=== PATIENT | male | born 1960 | race African-American/Black ===

== ENCOUNTER 2019-11-28 14:29 | Emergency (ER) | payer MEDICAID ==
[~2019-11-28] VITALS: Ht 195.6 cm; Wt 90.0 kg
[2019-11-28] MEDS ORDERED: NITROGLYCERIN 0.4MG TABLET SL SL PRN (15:30)
[2019-11-28] MEDS ORDERED: ASPIRIN 81MG TABLET PO ONE (15:30)
[2019-11-28] MEDS ORDERED: MORPHINE SULFATE 4 MG/ML CPJ (NOT FOR IM USE) IV ONE (15:30)
[2019-11-28] MEDS ORDERED: ONDANSETRON 4MG ODT PO ONE (15:30)
[2019-11-28 16:40] LABS: HEMATOCRIT. 37.3 % (42.0-52.0); HEMOGLOBIN. 13.8 g/dL (14.0-18.0); MEAN CORPUSCULAR HEMOGLOBIN 36.6 pg (28.0-32.0); MEAN CORPUSCULAR VOLUME 99.2 fL (80.0-94.0); MEAN PLATELET VOLUME 8.1 fl (7.4-10.4); PLATELET 178 x1000/uL (130-400); RED BLOOD CELL COUNT 3.77 mill/uL (4.7-6.1); RED CELL DISTRIBUTION WIDTH 17.5 % (11.6-14.6)
[2019-11-28 16:45] LABS: CHLORIDE 99 mEq/L (98-107)
[2019-11-28 17:24] LABS: PLATELET ESTIMATE NORMAL
[2019-11-29 03:25] VITALS: BP 143/79
== END 2019-11-29 03:29 | disposition home or self-care (01) ==
LOC: ER 14:29 → CANBEDREQ 21:08 → ER 11-29 03:29
DX: Z20.828 Contact with and (suspected) exposure to other viral communicable diseases (principal); Z71.89 Other specified counseling; Z59.0 Homelessness
CPT/HCPCS: 36415; 71045; 80053; 83880; 84484; 85025; 87420; 87804; 93005; 99285; Q0162; Z7610; J2270